=== PATIENT | male | born 1950 | race Caucasian/White ===

== ENCOUNTER 2017-03-05 14:55 | Emergency (ER) | payer SELFPAY ==
[2017-03-05 15:06] VITALS: BP 191/103
[2017-03-05] MEDS ORDERED: Ketorolac 60 MG/2 ML SDV ONE (15:32)
[2017-03-05] MEDS ORDERED: methylPREDNISolone Sodium Succinate 125 MG/2 ML SDV ONE (15:35)
[2017-03-05] MEDS ORDERED: methylPREDNISolone Sodium Succinate 125 MG/2 ML SDV IM ONE ×2 (15:40)
[2017-03-05] MEDS ORDERED: Ketorolac 60 MG/2 ML SDV IM ONE ×2 (15:40→15:41)
--- NOTE | 2017-03-05 15:54 | EDM.PDOC ---
ED HPI GENERAL MEDICAL PROBLEM - General Chief Complaint: Back Pain or Injury Stated Complaint: BACK PAIN Time Seen by Provider: 03/05/17 15:15 Source of Information: Reports: Patient, Family (son) History Limitations: Reports: No Limitations - History of Present Illness INITIAL COMMENTS - FREE TEXT/NARRATIVE: 66-year-old male presents today with approximately 1 week duration of exacerbation of low back pain and right leg sciatica. Patient reports that he was helping a family member move last Tuesday and since then has been having increasing pain in his right belt line and down his buttock and leg into his right calf. He's had a history of back problems in the past with prior MRI showing advanced degenerative changes throughout the lumbar spine. He notices that his pain is worse when he stands or walks and he can only walk about a block. He's been using crutches since yesterday to help for his ambulation. If he sits or lies down he has improvement of his pain he rates his pain a 10 out of 10 at its worse and at best a 7 out of 10. He denies saddle paresthesias. He denies any bowel or bladder incontinence. He does have numbness and tingling as well as radicular pain into his right leg. He's been taking ibuprofen 800 mg 3 times a day over the last week. He had prior epidural injections he believes by Dr. Velasquez in 2013. His typical pain is in the lower back but over the last week he feels is brought and right leg have become significantly worse in his low back pain. Onset: Gradual Onset Date: 02/26/17 Duration: Day(s):, Constant Location: Reports: Back, Radiates to (right leg calf) Quality: Reports: Stabbing Severity: Severe Improves with: Reports: Rest (lying down, reclined) Worsens with: Reports: Movement Context: Reports: Activity, Lifting. Denies: Trauma Associated Symptoms: Reports: No Other Symptoms Treatments [employer] AND FORMER: Reports: NSAIDS Lower Back Pain Score (Numeric/FACES): 9 - Related Data Allergies Allergy/AdvReac Type Severity Reaction Status Date / Time No Known Drug Allergies Allergy Other Verified 03/05/17 15:23 Home Meds: Home Meds Ibuprofen 800 mg PO Q6H PRN 03/05/17 [History] Past Medical History HEENT History: Reports: Impaired Vision Cardiovascular History: Reports: High Cholesterol, Hypertension Respiratory History: Reports: None Gastrointestinal History: Reports: Other (See Below) Other Gastrointestinal History: 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 Musculoskeletal History: Reports: Back Pain, Chronic, Other (See Below) Other Musculoskeletal History: spur to lumbar spine Psychiatric History: Reports: Addiction, Other (See Below) Other Psychiatric History: substance abuse - Infectious Disease History Infectious Disease History: Reports: Chicken Pox, Measles, Mumps - Past Surgical History HEENT Surgical History: Reports: Adenoidectomy, Tonsillectomy Cardiovascular Surgical History: Reports: None Respiratory Surgical History: Reports: None GI Surgical History: Reports: None Musculoskeletal Surgical History: Reports: None Social & Family History - Tobacco Use Smoking Status *Q: Current Every Day Smoker Years of Tobacco use: 50 Packs/Tins Daily: 1 Used Tobacco, but Quit: No Second Hand Smoke Exposure: Yes - Caffeine Use Caffeine Use: Reports: Coffee, Soda - Alcohol Use Days Per Week of Alcohol Use: 1 Number of Drinks Per Day: 1 Total Drinks Per Week: 1 - Recreational Drug Use Recreational Drug Use: Yes Drug Use in Last 12 Months: Yes Recreational Drug Type: Reports: Marijuana/Hashish Recreational Drug Use Frequency: Daily ED ROS GENERAL - Review of Systems Review Of Systems: See Below Constitutional: Reports: No Symptoms HEENT: Reports: Glasses Respiratory: Reports: No Symptoms Cardiovascular: Reports: No Symptoms Endocrine: Reports: No Symptoms GI/Abdominal: Reports: No Symptoms : Reports: No Symptoms Musculoskeletal: Reports: No Symptoms, Back Pain, Leg Pain (right leg), Muscle Pain Skin: Reports: No Symptoms Neurological: Reports: Numbness, Tingling, Difficulty Walking, Weakness, Gait Disturbance Psychiatric: Reports: No Symptoms Hematologic/Lymphatic: Reports: No Symptoms Immunologic: Reports: No Symptoms ED EXAM,LOWER BACK PAIN/INJURY - Physical Exam Exam: See Below Exam Limited By: No Limitations General Appearance: Alert, WD/WN, Moderate Distress Throat/Mouth: Normal Voice, No Airway Compromise Head: Atraumatic, Normocephalic Respiratory/Chest: No Respiratory Distress Cardiovascular: Normal Peripheral Pulses Back Exam: Decreased Range of Motion, Paraspinal Tenderness, Other (patient has increased pain discomfort in his low back right belt line with any gentle flexion-extension rotation or lateral bending.). No: CVA Tenderness (L), CVA Tenderness (R), Vertebral Tenderness Extremities: Normal Inspection, No Pedal Edema, Normal Capillary Refill, Leg Pain (patient has positive straight leg raise on the right negative straight leg raise on the left), Limited Range of Motion (patient reports pain in his right hip with gentle range of motion. Leg lengths are clinically equal). No: Joint Swelling, Pallor, Redness Neurological: Alert, Normal Mood/Affect, Normal Plantar Flexion, Oriented x 3, Abnormal Gait (antalgic gait, patient is using crutches for ambulation. Posture is stooped forward and has difficulty straightening up due to low back pain), Extensor Response to Pain (with straight leg raise on the right), Straight Leg Raise (R), Difficulty Walking, Other (he has 5 out of 5 motor strength on the left side with hip flexion extension ankle dorsal plantar flexion great toe extension. On the right side he has weakness with hip flexion due to pain and he has 4 out of 5 strength with dorsiflexion on the right. Great toe extension plantar flexion and knee extension are 5 out of 5.). No: Babinski, Straight Leg Raise (L), Saddle Anesthesia DTR - Lower Extremities: 1+: Ankle (R), Ankle (L), 2+: Knee (R), 3+: Knee (L) Psychiatric: Normal Affect, Normal Mood Skin Exam: Warm, Dry, Intact, Normal Color, No Rash Lymphatic: No Adenopathy Course - Vital Signs Last Recorded V/S: Last Vital Signs Temp 98.5 F 03/05/17 15:05 Pulse 88 03/05/17 15:05 Resp 20 03/05/17 15:05 BP 191/103 H 03/05/17 15:05 Pulse Ox 96 03/05/17 15:05 - Orders/Labs/Meds Orders: Active Orders 24 hr Category Date Time Status Lumbar Spine 2 or 3V [CR] Stat Exams 03/05/17 15:39 Ordered Meds: Medications Discontinued Medications Generic Name Dose Route Start Last Admin Trade Name Roland PRN Reason Stop Dose Admin Ketorolac Tromethamine Confirm 03/05/17 15:32 Toradol Administered 03/05/17 15:33 Dose 60 mg .ROUTE .STK-MED ONE Ketorolac Tromethamine 60 mg 03/05/17 15:40 03/05/17 15:42 Toradol IM 03/05/17 15:41 60 mg ONETIME ONE Administration Ketorolac Tromethamine 60 mg 03/05/17 15:41 Toradol IM 03/05/17 15:42 ONETIME ONE Methylprednisolone Sodium Succinate Confirm 03/05/17 15:35 Solu-Medrol Administered 03/05/17 15:36 Dose 125 mg .ROUTE .STK-MED ONE Methylprednisolone Sodium Succinate 125 mg 03/05/17 15:40 03/05/17 15:41 Solu-Medrol IM 03/05/17 15:41 125 mg ONETIME ONE Administration Methylprednisolone Sodium Succinate 125 mg 03/05/17 15:40 Solu-Medrol IM 03/05/17 15:41 ONETIME ONE - Radiology Interpretation Free Text/Narrative:: X-ray lumbar spine Findings: -There is advanced degenerative changes throughout the lumbar spine with loss of lumbar lordosis and anterior osteophyte formation due to the degenerative changes. No evidence of fracture. Impression: -DJD lumbar spine -Loss of lumbar lordosis X-ray right hip Findings: -Normal bilateral hip joint space -Mild hip dysplasia bilaterally Impression: -Normal hip radiographs -Negative for fracture - Re-Assessments/Exams Free Text/Narrative Re-Assessment/Exam: 03/05/17 16:14 She was given 125 mg IM Solu-Medrol. Patient was given IM Toradol 60 mg. 03/05/17 16:23 Patient reports that his pain is now a 3 out of 10 he feels significantly better Departure - Departure Time of Disposition: 16:24 Disposition: Home, Self-Care 01 Condition: Fair Clinical Impression: Acute exacerbation of chronic low back pain, Radicular leg pain Sciatica Qualifiers: Laterality: right Qualified Code(s): M54.31 - Sciatica, right side Degenerative joint disease (DJD) of lumbar spine Qualifiers: Spinal osteoarthritis complication: with radiculopathy Qualified Code(s): M47.26 - Other spondylosis with radiculopathy, lumbar region - Discharge Information Instructions: Sciatica, Degenerative Disk Disease Referrals: Iram Velasquez MD [Primary Care Provider] - Forms: ED Department Discharge Additional Instructions: 1. Activity modification and rest. 2. Ice and/or heat packs for low back. 3. Medrol Dosepak tapering over 6 days. 4. Toradol 10 mg 3 times a day as needed for severe pain. 5. [place] 5/325 one to 2 every 6 hours when necessary for severe pain. 6. Flexeril 10 mg 3 times a day when necessary for muscle spasm. 7. Follow-up with primary care next week if symptoms are not improving. Would recommend a course of physical therapy and new MRI lumbar spine if right leg sciatica is not improving. - My Orders Last 24 Hours: My Active Orders 03/05/17 15:39 Lumbar Spine 2 or 3V [CR] Stat - Assessment/Plan Last 24 Hours: My Active Orders 03/05/17 15:39 Lumbar Spine 2 or 3V [CR] Stat Assessment:: 1. DJD lumbar spine with right leg sciatica 2. Acute exacerbation of chronic low back pain Plan: 1. Activity modification and rest. 2. Ice and/or heat packs for low back. 3. Medrol Dosepak tapering over 6 days. 4. Toradol 10 mg 3 times a day as needed for severe pain. 5. [place] 5/325 one to 2 every 6 hours when necessary for severe pain. 6. Flexeril 10 mg 3 times a day when necessary for muscle spasm. 7. Follow-up with primary care next week if symptoms are not improving. Would recommend a course of physical therapy and new MRI lumbar spine if right leg sciatica is not improving.
[2017-03-05] MEDS: Acetaminophen/HYDROcodone 325-5 MG Tab ONE ×2 (15:57→16:00)
[2017-03-05] MEDS ORDERED: Cyclobenzaprine 10 MG Tab ONE (16:06)
[2017-03-05] MEDS ORDERED: Acetaminophen/HYDROcodone 325-5 MG Tab ONE (16:06)
[2017-03-05] MEDS ORDERED: predniSONE 20 MG Tab ONE (16:06)
[2017-03-05] MEDS ORDERED: Ketorolac 10 MG Tab ONE (16:20)
[2017-03-05] MEDS ORDERED: Cyclobenzaprine 10 MG Tab PO ONE (16:30)
[2017-03-05] MEDS ORDERED: predniSONE 20 MG Tab PO ONE (16:30)
[2017-03-05] MEDS ORDERED: Ketorolac 10 MG Tab PO ONE (16:30)
[2017-03-05] MEDS ORDERED: Acetaminophen/HYDROcodone 325-5 MG Tab PO ONE (16:30)
[2017-03-09] MEDS ORDERED: Cyclobenzaprine 10 MG Tab PO ONE (09:37)
[2017-03-09] MEDS ORDERED: Acetaminophen/HYDROcodone 325-5 MG Tab PO ONE (09:41)
[2017-03-09] MEDS ORDERED: predniSONE 20 MG Tab PO ONE (09:42)
[2017-03-09] MEDS ORDERED: Ketorolac 10 MG Tab PO SCH (09:45)
[2017-03-09] MEDS ORDERED: Acetaminophen/HYDROcodone 325-5 MG Tab PO SCH (09:45)
== END 2017-03-05 16:20 | disposition home or self-care (01) ==
LOC: KA.ED 14:55
DX: M47.26 Other spondylosis with radiculopathy, lumbar region (principal); M54.31 Sciatica, right side; F17.210 Nicotine dependence, cigarettes, uncomplicated; E78.00 Pure hypercholesterolemia, unspecified; I10 Essential (primary) hypertension; Z90.49 Acquired absence of other specified parts of digestive tract; Z90.89 Acquired absence of other organs
CPT/HCPCS: 72100; 73502; 96372; 99283; A9270; J1885; J2930

== ENCOUNTER 2024-02-28 12:01 | Emergency (ER) | payer SELFPAY ==
[2024-02-28] MEDS: Metoprolol Tartrate 5 MG/5 ML SDV IVPUSH ONE ×2 (12:30→13:26)
[2024-02-28 12:32] LABS: BASOPHILS ABSOLUTE AUTO 0.03 10^3/uL (0.00-0.10); BASOPHILS PERCENT AUTO 0.6 % (0.0-1.0); EOSINOPHILS ABSOLUTE AUTO 0.04 10^3/uL (0.10-0.30); EOSINOPHILS PERCENT AUTO 0.7 % (1.0-3.0); HEMATOCRIT 47.3 % (40.0-52.0); HEMOGLOBIN 15.9 g/dL (13.0-17.0); IMMATURE GRAN ABSOLUTE AUTO 0.01 10^3/uL (0.00-0.50); IMMATURE GRAN PERCENT AUTO 0.2 % (0.0-5.0); LYMPHOCYTES ABSOLUTE AUTO 1.03 10^3/uL (1.00-4.00); LYMPHOCYTES PERCENT AUTO 19.1 % (20.0-40.0); MEAN CORPUSCULAR HEMOGLOBIN 30.3 pg (27.0-31.0); MEAN CORPUSCULAR HGB CONC 33.6 g/dL (32.0-36.0); MEAN CORPUSCULAR VOLUME 90.1 fL (82.0-92.0); MEAN PLATELET VOLUME 9.4 fL (7.4-10.4); MONOCYTES ABSOLUTE AUTO 0.74 10^3/uL (0.10-0.80); MONOCYTES PERCENT AUTO 13.8 % (2.0-8.0); NEUTROPHILS ABSOLUTE AUTO 3.53 10^3/uL (2.50-7.00); NEUTROPHILS PERCENT AUTO 65.6 % (50.0-70.0); PLATELET COUNT,PLT 323 10^3/uL (150-400); RED BLOOD CELL COUNT 5.25 10^6/uL (4.50-6.00); RED CELL DISTRIBUTION WIDTH 13.6 % (11.5-14.5); WHITE BLOOD CELL COUNT,WBC 5.38 10^3/uL (5.00-10.00)
[2024-02-28 12:46] LABS: ALANINE AMINOTRANSFERASE,ALT 48 U/L (14-63); ALBUMIN 3.76 g/dL (3.40-5.00); ALKALINE PHOSPHATASE 84 U/L (46-116); ANION GAP 18.3 mmol/L (5-15); ASPARTATE AMNIOTRANSFERASE,AST 43 U/L (15-37); BILIRUBIN TOTAL 0.5 mg/dL (0.2-1.0); BLOOD UREA NITROGEN,BUN 12 mg/dL (7-18); CALCIUM 9.8 mg/dL (8.7-10.3); CARBON DIOXIDE,CO2 25.2 mmol/L (21.0-32.0); CHLORIDE,CL 103 mmol/L (98-107); GLUCOSE RANDOM 143 mg/dL (70-140); POTASSIUM,K 3.5 mmol/L (3.5-5.1); PROTEIN TOTAL,TP 7.9 g/dL (6.4-8.2); SODIUM,NA 143 mmol/L (136-145)
[2024-02-28] MEDS: Sodium Chloride 0.9% 1,000 ML IV ONE (12:49)
[2024-02-28 12:55] LABS: ESTIMATED GFR 72 mL/min (>=60)
[2024-02-28] MEDS: Aspirin 81 MG Tab.Chew PO ONE (13:48)
[2024-02-28] MEDS: Heparin Sodium 5,000 Units/ML Vial IVPUSH ONE (14:13)
[2024-02-28 14:35] LABS: PTT,PARTIAL THROMBOPLSTIN TIME 22.3 SEC (23.3-34.9)
[2024-02-28] MEDS: Heparin Sodium/D5W 250 ML IV SCH (14:40)
[2024-02-28] MEDS: Labetalol 100 MG/20 ML MDV IVPUSH ONE (14:50)
[2024-02-28 16:42] VITALS: BP 147/100; PULSE 105
== END 2024-02-28 15:30 ==
LOC: KA.ED 12:01
DX: I21.4 Non-ST elevation (NSTEMI) myocardial infarction (principal); I48.91 Unspecified atrial fibrillation; I10 Essential (primary) hypertension
CPT/HCPCS: 36415; 80053; 84484; 85025; 85610; 85730; 96361; 96365; 96375; 96376; 99285-25; A9270-GY; J1644; J1921; J3490; J7030

== ENCOUNTER 2024-03-05 08:35 | Emergency (ER) | payer SELFPAY ==
[2024-03-05 09:13] LABS: BASOPHILS ABSOLUTE AUTO 0.02 10^3/uL (0.00-0.10); BASOPHILS PERCENT AUTO 0.2 % (0.0-1.0); EOSINOPHILS ABSOLUTE AUTO 0.07 10^3/uL (0.10-0.30); EOSINOPHILS PERCENT AUTO 0.7 % (1.0-3.0); HEMATOCRIT 46.3 % (40.0-52.0); HEMOGLOBIN 15.9 g/dL (13.0-17.0); IMMATURE GRAN ABSOLUTE AUTO 0.01 10^3/uL (0.00-0.50); IMMATURE GRAN PERCENT AUTO 0.1 % (0.0-5.0); LYMPHOCYTES ABSOLUTE AUTO 1.76 10^3/uL (1.00-4.00); LYMPHOCYTES PERCENT AUTO 18.3 % (20.0-40.0); MEAN CORPUSCULAR HEMOGLOBIN 30.5 pg (27.0-31.0); MEAN CORPUSCULAR HGB CONC 34.3 g/dL (32.0-36.0); MEAN CORPUSCULAR VOLUME 88.9 fL (82.0-92.0); MEAN PLATELET VOLUME 10.1 fL (7.4-10.4); MONOCYTES ABSOLUTE AUTO 1.41 10^3/uL (0.10-0.80); MONOCYTES PERCENT AUTO 14.7 % (2.0-8.0); NEUTROPHILS ABSOLUTE AUTO 6.34 10^3/uL (2.50-7.00); PLATELET COUNT,PLT 258 10^3/uL (150-400); RED BLOOD CELL COUNT 5.21 10^6/uL (4.50-6.00); WHITE BLOOD CELL COUNT,WBC 9.61 10^3/uL (5.00-10.00)
[2024-03-05 09:15] VITALS: BP 184/93; PULSE 72
[2024-03-05 09:35] LABS: ALANINE AMINOTRANSFERASE,ALT 57 U/L (14-63); ALBUMIN 2.92 g/dL (3.40-5.00); ALKALINE PHOSPHATASE 70 U/L (46-116); ANION GAP 13.2 mmol/L (5-15); ASPARTATE AMNIOTRANSFERASE,AST 45 U/L (15-37); BILIRUBIN TOTAL 0.9 mg/dL (0.2-1.0); BLOOD UREA NITROGEN,BUN 7 mg/dL (7-18); CHLORIDE,CL 100 mmol/L (98-107); GLUCOSE RANDOM 107 mg/dL (70-140); PROTEIN TOTAL,TP 7.4 g/dL (6.4-8.2); SODIUM,NA 134 mmol/L (136-145)
[2024-03-05 09:37] LABS: INR 1.1 (0.9-1.1)
[2024-03-05 09:38] LABS: ESTIMATED GFR 103 mL/min (>=60)
[2024-03-05 09:39] LABS: POTASSIUM,K 4.2 mmol/L (3.5-5.1)
[2024-03-05] MEDS: Acetaminophen 500 MG Tab PO ONE (10:11)
[2024-03-05] MEDS ORDERED: Heparin Sodium 5,000 Units/ML Vial IVPUSH ONE ×2 (10:13→10:32)
[2024-03-05] MEDS: Heparin Sodium 5,000 Units/ML Vial IVPUSH ONE ×2 (10:30→16:15)
[2024-03-05] MEDS: Heparin Sodium/D5W 250 ML IV SCH (10:38)
[2024-03-05] MEDS: Heparin Sodium 5,000 Units/ML Vial IV ONE (16:15)
== END 2024-03-05 16:24 ==
LOC: KA.ED 08:35
DX: M25.511 Pain in right shoulder (principal); I21.4 Non-ST elevation (NSTEMI) myocardial infarction; R79.1 Abnormal coagulation profile; R79.89 Other specified abnormal findings of blood chemistry; Z98.62 Peripheral vascular angioplasty status; I10 Essential (primary) hypertension; E78.00 Pure hypercholesterolemia, unspecified; F17.210 Nicotine dependence, cigarettes, uncomplicated; Z79.899 Other long term (current) drug therapy; Z79.82 Long term (current) use of aspirin
CPT/HCPCS: 36415; 36416; 71046; 73030-RT; 80053; 84484; 85025; 85379; 85610; 85730; 93010; 96365; 96366; 99284; 99285-25; A9270-GY; J1644